=== PATIENT | male | born 1955 | race Caucasian/White ===

== ENCOUNTER 2024-03-21 15:35 | Emergency (ER) | payer BC, MEDICARE, SELFPAY ==
[2024-03-21 15:45] VITALS: BP 127/66; PULSE 67; RESP 18; TEMP 36.6; O2SAT 100
--- NOTE | 2024-03-21 15:52 | ED.GENADULT ---
HPI - General Adult General Chief complaint: Skin/Abscess/Foreign Body Stated complaint: Foreign Object in Lt Ear Time Seen by Provider: 03/21/24 15:52 Source: patient Mode of arrival: ambulatory Limitations: no limitations History of Present Illness HPI narrative: 68-year-old male presents with piece of hearing aid stuck in left ear. No other complaints today. All systems reviewed and negative except as noted above. Related Data Home Medications Medication Instructions Recorded Confirmed atorvastatin 20 mg tablet 20 mg PO HS 03/21/24 03/21/24 fluticasone propionate 220 2 inh inhalation DAILY 03/21/24 03/21/24 mcg/actuation HFA aerosol inhaler latanoprost 0.005 % eye drops 1 drp EACH EYE HS 03/21/24 03/21/24 losartan 50 mg-hydrochlorothiazide 1 tablet PO DAILY 03/21/24 03/21/24 12.5 mg tablet montelukast 10 mg tablet 10 mg PO HS 03/21/24 03/21/24 salmeterol 50 mcg/dose blister 1 inh inhalation BID 03/21/24 03/21/24 powder for inhalation (Serevent Diskus) semaglutide (weight loss) 1 mg/0.5 1 mg subcut WEEKLY 03/21/24 03/21/24 mL subcutaneous pen injector ([employer]) tamsulosin 0.4 mg capsule 0.8 mg PO DAILY 03/21/24 03/21/24 Allergies Allergy/AdvReac Type Severity Reaction Status Date / Time No Known Allergies Allergy Verified 03/21/24 15:57 Review of Systems Review of Systems: CONSTITUTIONAL: Denies fever, chills, or sweats. EYES: Denies visual changes, redness, or discharge. ENT: Denies rhinorrhea, congestion, sore throat, or otalgia. Reports foreign body to left ear canal. CARDIOVASCULAR: Denies chest pain, palpitations, or edema. RESPIRATORY: Denies cough or dyspnea. GASTROINTESTINAL: Denies abdominal pain, nausea, vomiting, or diarrhea. GENITOURINARY: Denies dysuria or hematuria. SKIN: Denies rash or itching. MUSCULOSKELETAL: Denies back pain, joint pain, or myalgia. NEUROLOGIC: Denies headache, numbness, or weakness. PSYCHIATRIC: Denies anxiety or depression. All other systems reviewed are negative, except as documented in HPI. PMFSH Comments At time of signature, agree with nursing past medical, surgical, social and family history. There is no relevant family history pertinent to the presenting complaint. Exam Narrative: GENERAL: This is a well-nourished, well-developed patient, in no apparent distress. HEAD: normocephalic, atraumatic. EYES: PERRL. Sclera clear/white. Vision is grossly intact. EARS: External ears normal, auditory canals clear and without drainage, TMs normal without perforation. Hearing grossly intact. Clear plastic piece from successfully hearing aid removed from left ear canal. NOSE: External nose normal NECK: Neck supple, non-tender without lymphadenopathy, masses or thyromegaly. CARDIOVASCULAR: Regular rate and rhythm without murmurs, gallops, or rubs. RESPIRATORY: Clear to auscultation. Breath sounds equal bilaterally. No wheezes, rales, or rhonchi. SKIN: warm, Dry, intact with no suspicious lesions or rash, good texture and turgor. NEURO: awake, alert, and oriented to person, place and time. There were no obvious focal neurologic abnormalities. EXTREMITIES: No joint tenderness, effusion, or edema noted. Course Course Level of Care: Express Care Visit Vital Signs Vital signs: Vital Signs Temperature 36.6 C 03/21/24 15:45 Pulse Rate 67 03/21/24 15:45 Respiratory Rate 18 03/21/24 15:45 Blood Pressure 127/66 03/21/24 15:45 Pulse Oximetry 100 03/21/24 15:45 Oxygen Delivery Room Air 03/21/24 15:45 Temperature 36.6 C 03/21/24 15:45 Pulse Rate 67 03/21/24 15:45 Respiratory Rate 18 03/21/24 15:45 Blood Pressure 127/66 03/21/24 15:45 Pulse Oximetry 100 03/21/24 15:45 Oxygen Delivery Room Air 03/21/24 15:45 Reviewed Procedures FB Removal Ear Foreign Body #1: Foreign Body Removal Date: 03/21/24 Foreign Body Removal Time: 15:45 Location: ear canal (L) Foreign Body Suspe
== END 2024-03-21 15:58 | disposition home or self-care (01) ==
PROVIDERS: Emergency Provider Nurse Practitioner Family; PCP Family Medicine
DX: T16.2XXA Foreign body in left ear, initial encounter (principal); W44.G1XA Audio device entering into or through a natural orifice, initial encounter; E78.00 Pure hypercholesterolemia, unspecified; I10 Essential (primary) hypertension; J45.909 Unspecified asthma, uncomplicated; M19.90 Unspecified osteoarthritis, unspecified site; H40.9 Unspecified glaucoma
CPT/HCPCS: 69200; 99212; G0463

== ENCOUNTER 2024-05-29 10:33 | Emergency (ER) | payer BC, MEDICARE, SELFPAY ==
[2024-05-29 10:49] VITALS: BP 126/69; PULSE 74; RESP 16; TEMP 36.7; O2SAT 98
--- NOTE | 2024-05-29 11:13 | ED.GENADULT ---
HPI - General Adult General Chief complaint: Skin/Abscess/Foreign Body Stated complaint: FB R EAR Time Seen by Provider: 05/29/24 11:13 Source: patient, RN notes reviewed and old records reviewed Mode of arrival: ambulatory Limitations: no limitations History of Present Illness HPI narrative: patient presents with complaints of foreign body to right ear. He reports that his hearing aid broke, part of it is still in his right ear. He denies all other complaints, no injury or trauma. Related Data Home Medications Medication Instructions Recorded Confirmed atorvastatin 20 mg tablet 20 mg PO HS 03/21/24 05/29/24 fluticasone propionate 220 2 inh inhalation DAILY 03/21/24 05/29/24 mcg/actuation HFA aerosol inhaler latanoprost 0.005 % eye drops 1 drp EACH EYE HS 03/21/24 05/29/24 losartan 50 mg-hydrochlorothiazide 1 tablet PO DAILY 03/21/24 05/29/24 12.5 mg tablet montelukast 10 mg tablet 10 mg PO HS 03/21/24 05/29/24 salmeterol 50 mcg/dose blister 1 inh inhalation BID 03/21/24 05/29/24 powder for inhalation (Serevent Diskus) semaglutide (weight loss) 1 mg/0.5 1 mg subcut WEEKLY 03/21/24 05/29/24 mL subcutaneous pen injector ([employer]) tamsulosin 0.4 mg capsule 0.8 mg PO DAILY 03/21/24 05/29/24 Allergies Allergy/AdvReac Type Severity Reaction Status Date / Time No Known Allergies Allergy Verified 05/29/24 10:47 Review of Systems Review of Systems: All systems reviewed & are unremarkable except as noted in HPI and below Constitutional: Constitutional: Reports no additional constitutional complaints ENT: Reports system reviewed and no additional complaints, except as documented, Reports as per HPI and Denies Normal hearing present Cardiovascular: Cardiovascular: Reports no additional cardiovascular complaints Respiratory: Respiratory: Reports no additional respiratory complaints Gastrointestinal: Gastrointestinal: Reports no additional gastrointestinal complaints Exam Const: General: cooperative, no acute distress, alert and awake Orientation/consciousness: oriented to person, oriented to place and oriented to time HENMT: Head: normal to inspection Ears: other ( Foreign body to right ear) Resp: Effort & Inspection: normal respiratory effort and able to speak in complete sentences Auscultation: clear to auscultation bilaterally, no crackles, no rales, no rhonchi and no wheezes Cardio: Palpation: normal PMI Rate: regular rate Rhythm: regular rhythm Heart sounds: S1 normal heart sound present and S2 normal heart sound present Neuro: General: oriented to person, oriented to place and oriented to time Cranial nerves: Yes CN's II-XII intact bilaterally Psych: Appearance: grossly normal Thought process: Normal thought process present Insight: Good insight present (Psych) Judgement: Good judgement present (Psych) Course Course Level of Care: Express Care Visit Vital Signs Vital signs: Vital Signs Temperature 98.1 F 05/29/24 10:49 Pulse Rate 74 05/29/24 10:49 Respiratory Rate 16 05/29/24 10:49 Blood Pressure 126/69 05/29/24 10:49 Pulse Oximetry 98 05/29/24 10:49 Temperature 98.1 F 05/29/24 10:49 Pulse Rate 74 05/29/24 10:49 Respiratory Rate 16 05/29/24 10:49 Blood Pressure 126/69 05/29/24 10:49 Pulse Oximetry 98 05/29/24 10:49 Procedures FB Removal Ear Foreign Body #1: Foreign Body Removal Date: 05/29/24 Foreign Body Removal Time: 11:18 Location: ear canal (R) Foreign Body Suspected: other ( hearing aid component) TM intact pre-procedure: yes Foreign Body Removed: yes Foreign Body Removal Technique: forceps Tympanic Membrane Intact Post Procedure: Yes Patient Tolerated Procedure: well Complications: none Medical Decision Making MDM Narrative Medical decision making narrative: foreign body to right ear removed without difficulty. There is some remaining ear wax in the canal, rec
== END 2024-05-29 11:26 | disposition home or self-care (01) ==
PROVIDERS: Emergency Provider Nurse Practitioner Family; PCP Family Medicine
DX: T16.1XXA Foreign body in right ear, initial encounter (principal); W44.G1XA Audio device entering into or through a natural orifice, initial encounter
CPT/HCPCS: 69200; 99212; G0463